=== PATIENT | female | born 1970 | race Two or more races ===

== ENCOUNTER → 2024-12-29 | Outpatient (CLI) | payer MEDICAID, SELFPAY ==
--- NOTE | 2024-12-29 09:00 | XR_ITS ---
Examination: Screening digital mammography, bilateral Computer aided detection 3-D breast Tomosynthesis, bilateral Date and time of exam: December 29, 2024 0848 hours Compared to mammograms dating to December 18, 2013 Indication: Screening Technique: Nonmagnified MLO, CC views of the breasts to been obtained, reconstructed from 3-D Tomosynthesis images. R2 computer aided detection program utilized for evaluation of suspicious masses and/or abnormal calcifications. 3-D Tomosynthesis images obtained. Findings: The breasts are heterogeneously dense, which may obscure small masses Benign calcifications No interval suspicious masses Impression: BI-RADS category II: Benign Findings. Recommend 1 year follow-up mammogram.
== END | disposition home or self-care (01) ==
LOC: CDIM 08:38
PROVIDERS: Referring Provider Nurse Practitioner Women's Health; Visit Provider Nurse Practitioner Women's Health
DX: Z12.31 Encounter for screening mammogram for malignant neoplasm of breast (principal); R92.323 Mammographic fibroglandular density, bilateral breasts; R92.1 Mammographic calcification found on diagnostic imaging of breast
CPT/HCPCS: 77063; 77067

== ENCOUNTER 2025-10-19 21:25 | Emergency (ER) | payer MEDICAID, SELFPAY ==
[2025-10-19 21:26] VITALS: BMI 38.4
[2025-10-19 21:34] VITALS: BP 117/74; PULSE 89; RESP 18; TEMP 36.6; O2SAT 97
--- NOTE | 2025-10-19 21:42 | XR_ITS ---
Examination: Duplex scan of the lower extremity, unilateral right Date and time of exam: October 19, 2025, 10:38 p.m. INDICATIONS: Right leg pain beginning 4 days ago Technique: Duplex scan of the extremity veins using B-mode/grayscale imaging and Doppler spectral analysis and color flow Attention is directed to internal echogenicity, compression and augmentation involving these veins, color flow assessment, spectral analysis Findings: Major deep venous structures in the extremity demonstrate normal course and caliber. There is no evidence of deep vein thrombosis. Normal color flow and spectral analysis Impression: Negative for DVT..
--- NOTE | 2025-10-19 21:47 | EDNOTE_ITS ---
ED Extremity Problem RME/HPI General Chief complaint: Extremity Problem,Nontraumatic Stated complaint: RIGHT HIP PAIN RADIATING DOWN TO KNEE Time Seen by Provider: 10/19/25 21:41 Arrival date/time: 10/19/25 21:25 55F with no significant PMH presents to ED with several weeks of R thigh pain w/o fall/trauma. There is also intermittent numbness. Patient denies fevers/chills and states skin is not red. Limitations: no limitations Related Data Home Medications ?Medication ?Instructions ?Recorded ?Confirmed Ketorolac Tromethamine * (TORADOL 10 mg PO QDAY #0 tab s 06/04/16 *) tramadol 50 mg tablet (Ultram) 25 mg PO PRN PRN PAIN # 0 tabs 06/04/16 Previous Rx's ?Medication ?Instructions ?Recorded omeprazole 20 mg capsule,delayed 20 mg PO QDAY ##30 release Allergies Allergy/AdvReac Type Severity Reaction Status Date / Time No Known Allergies Allergy Verified 10/19/25 21:26 Review of Systems Review of Systems Systems Reviewed: All systems reviewed, normal except as documented Musculoskeletal Musculoskeletal: Reports as per HPI, Reports arthralgias and Reports radiating pain into limb Past Medical History Social History SMOKING STATUS: Never smoker ED Exam General Limitations: Present no limitations General appearance: Present alert and in no apparent distress Head Head exam: Present atraumatic Neck Neck exam: Present normal inspection, full ROM and trachea midline Chest Chest inspection: Present normal inspection and symmetric chest wall rise Extremities Exam Extremities exam: Present full ROM Neurological Exam Neurological exam: Present alert and oriented X3 Psychiatric Psychiatric exam: Present normal affect and normal mood Skin Skin exam: Present warm, dry, intact and normal color Course Quality Measures none Orders Category Date Time Status US venous doppler LE RT Stat Exams 10/19/25 21:42 Completed HYDROcodone*/APAP 5/325 [[place] 5/325] Med 10/19/25 21:42 Discontinued 1 tab PO X1 ONE Vital Signs Vital signs: Vital Signs Temperature 97.9 F 10/19/25 21:34 Pulse Rate 89 10/19/25 21:34 Respiratory Rate 18 10/19/25 21:34 Blood Pressure 117/74 10/19/25 21:34 Pulse Oximetry (%) 97 10/19/25 21:34 Oxygen Delivery Method Room Air 10/19/25 21:34 O2 at 97% on RA and WNLs Extremity Problem MDM Narrative MDM Narrative:: 55F with no significant PMH presents to ED with several weeks of R thigh pain w/o fall/trauma. There is also intermittent numbness. Patient denies fevers/chills and states skin is not red. Physical exam with surveillance agent CARL Richards reveals no obvious swelling or redness. Patient is afebrile, calm, and alert. US no DVT. Meds and residential counselor given. Patient data External records reviewed:: [facility] previous records Clinical information provided by:: patient Social determinants that could affect healthcare access:: none Patient has the following chronic illnesses:: none How is presenting disease/condition affected by chronic disease/condition?: no chronic disease Evaluation data The following diagnostics were reviewed and interpreted by me:: radiology exam(s) Lab and/or radiology exams considered but not ordered:: ordered Interpretation Summary: above Medications / Prescriptions Medications or Prescriptions considered but not ordered:: ordered Medication administrations:: Medication Administration History Discontinued Medications Hydrocodone Bitart/Acetaminophen (Hydrocodone/[place]ap 5/325 Tablet) 1 tab PO X1 ONE Stop: 10/19/25 21:43 Last Admin: 10/19/25 21:54 Dose: 1 tab Documented By: MAMI fitch Consultations Consultation(s) initiated? (list below): No Diagnosis Extremity Problem Differential Diagnosis: herpes zoster, gout, cellulitis, superficial thrombophlebitis, deep venous thrombosis of upper extremity, lower extremity edema, deep vein thrombosis of lower extremity and other (sciatica) Most likely diagnosis given after review of the tests above:: sciatica Admission Indicated Admission indicated?: not indicated Admission Request Was there a request for admission?: No Disposition Plan Disposition Plan: Discharge Discharge Attestation Discharge Attestation: The patient and all family members were given an opportunity to ask questions and understood the discharge instructions. Discharge instructions specifically effects, indications for sooner follow up or return to the emergency department, and the expected course of current diagnosis. Patient condition: Stable Discharge Plan Plan Patient Disposition: HOME (Self Care) Discharge Disposition comment: Stable Prescriptions/Referrals Prescriptions/Med Rec: No Action omeprazole 20 MG capsule,delayed release(DR/EC) 20 mg PO QDAY Qty: 30 0RF tramadol [Ultram] 50 MG tablet 25 mg PO PRN PRN (Reason: PAIN) Qty: 0 Patient Comments: FOR PAIN, NOT TO EXCEED 8 TABS IN 24 HRS Ketorolac Tromethamine * (TORADOL *) 10 MG tablet 10 mg PO QDAY Qty: 0 Referrals: No Primary/Family,Physician [Primary Care Provider] - In 1 week Problem List Clinical Impression: Sciatica Patient/Caregiver Discharge Instructions Education Materials: Leg Low Back Pain Poss Causes, ED Sciatica Additional Instructions: Please follow-up with PCP within 24-48 hours and return immediately if symptoms worsen. If problem persists, recommend outpatient PT and/or MRI follow-up. In the meantime, rest, use ice/heat, and/or compression. Print Language: Beninese Stand Alone Forms: Patient Portal Info Letter PA/INSURANCE REPRESENTATIVE Supervising Physician PA/LASHONDA Supervising Physician: Dr. Milian
[2025-10-19] MEDS: HYDROcodone/APAP 5/325 TABLET 1 TAB PO (21:54)
--- NOTE | 2025-10-19 23:32 | PRELIM_ITS ---
Right lower extremity venous Doppler ultrasound with wave Doppler spectral analysis.. October 19, 2025 at 2238 hours Clinical history: Rule out DVT. Technique: Duplex scan of the right lower extremity deep venous systems was performed utilizing 2D grayscale imaging, Doppler spectral analysis and color flow Doppler and with compression. Comparison: No prior study is available for comparison. Findings: Cleaning scale, color flow and spectral Doppler evaluation of the right lower extremity deep veins were performed. The common femoral, superficial femoral and popliteal veins are patent and compressible. Normal respiratory variation is noted. There is no evidence of occlusive or nonocclusive thrombus. The great saphenous vein is patent and compressible at the level of the saphenofemoral junction. Impression: No sonographic evidence of deep venous thrombosis in the right lower extremity. Report Electronically Signed By: Bairon Singleton 10/19/2025 11:32:06 PM [EST]
== END 2025-10-19 23:36 | disposition home or self-care (01) ==
PROVIDERS: Emergency Provider Emergency Medicine
DX: M54.42 Lumbago with sciatica, left side (principal)
CPT/HCPCS: 93971; 99282; A9270